=== PATIENT | male | born 2005 | race Two or more races ===

== ENCOUNTER 2025-05-06 10:45 | Emergency (ER) | payer OTHER ==
[~2025-05-06] VITALS: Ht 185.4 cm; Wt 83.6 kg
[2025-05-06 12:37] LABS: PLATELET COUNT (AUTO) 143 K/uL (150-450); RED BLOOD CELL COUNT(AUTO) 4.86 MIL/uL (4.50-5.90); RED CELL DISTRIBUTION WIDTH 12.0 % (11.5-14.5); WHITE BLOOD COUNT (AUTO) 8.1 K/uL (4.5-11.0)
[2025-05-06 12:44] LABS: CALCIUM, TOTAL 9.0 mg/dL (8.8-10.5); CREATININE 0.89 mg/dL (0.60-1.30); GLOMERULAR FILTR. RATE CALC > 60 mL/min (>60); GLUCOSE,RANDOM 87 mg/dL (70-110); SODIUM SERUM 139 mmol/L (136-145); UREA NITROGEN, BLOOD 10 mg/dL (7-18)
[2025-05-06 14:50] VITALS: BP 127/62; PULSE 70; RESP 16; TEMP 98.305304; O2SAT 99
== END 2025-05-06 14:55 | disposition home or self-care (01) ==
LOC: EMS 10:45
DX: R55 Syncope and collapse (principal); H53.2 Diplopia; R51.9 Headache, unspecified; Z98.890 Other specified postprocedural states
CPT/HCPCS: 80048; 85025; 93005; 99284